=== PATIENT | female | born 1970 | race African-American/Black ===

== ENCOUNTER 2017-08-11 15:48 | Outpatient (CLI) | payer OTHER ==
--- NOTE | 2017-08-12 10:19 | Magnetic Resonance Report ---
MRI scanner lumbar spine: History: Back pain. Technique: Multiplanar, multisequence images were obtained without contrast injection. Findings: Conus medullaris terminates at L1 with normal signal intensity. Normal flow lumbar lordosis. Normal pre-and paravertebral soft tissue. Normal height and signal intensity of vertebral bodies and intervertebral disc. L1-L2. Normal. L2-L3. Normal. L3-L4. Normal. L4-L5. Mild bilateral neuroforaminal narrowing secondary to diffuse disc bulge. No central canal spinal stenosis. Normal facet joints. L5-S1. Mild bilateral neural foraminal narrowing secondary diffuse disc bulge. Mild degenerative facet joints. No central canal spinal stenosis. No focal protrusion, extrusion or sequestration of disc. Impression: Mild bilateral neuroforamina narrowing at L4-L5 and L5-S1 secondary diffuse disc bulge.
== END 2017-08-11 15:49 | disposition home or self-care (01) ==
LOC: MRI 15:48
PROVIDERS: ATTEND Family Medicine Adult Medicine
DX: M51.26 Other intervertebral disc displacement, lumbar region (principal); M40.46 Postural lordosis, lumbar region
CPT/HCPCS: 72148